=== PATIENT | female | born 1975 | race Caucasian/White ===

== ENCOUNTER 2020-01-24 08:53 | Emergency (ER) | payer OTHER, BC ==
[2020-01-24 09:01] VITALS: BP 118/78; PULSE 94; TEMP 97.9; BMI 22.8
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
[2020-01-24] MEDS ORDERED: KETOROLAC TROMETHAMINE 60 MG/2 ML VIAL IM ONE (09:33)
[2020-01-24] MEDS ORDERED: KETOROLAC TROMETHAMINE 30 MG/1 ML VIAL ONE (09:50)
== END 2020-01-24 10:41 | disposition home or self-care (01) ==
LOC: JER 08:53
PROC: 3E0233Z Introduction of Anti-inflammatory into Muscle, Percutaneous Approach (ICD-10-PCS; principal; 2020-01-24)
DX: M25.562 Pain in left knee (principal)
CPT/HCPCS: 73562-TC-RT-FY; 99284-25